=== PATIENT | male | born 2000 | race Hispanic/Latino ===

== ENCOUNTER 2020-01-27 05:49 | Emergency (ER) | payer OTHER ==
[~2020-01-27] VITALS: Ht 160 cm; Wt 67.0 kg
[2020-01-27] MEDS ORDERED: GI COCKTAIL 50ML BTL(HYOSCYAMINE/MAALOX/LIDOCAINE VISCOUS)(1:3:1) PO ONE (06:30)
--- NOTE | 2020-01-27 07:41 | REP ---
Clinical: Central chest pain . Comparison: None . Technique: PA and lateral. Findings: The mediastinum and cardiac silhouette are normal. The lung ramirez are clear and without acute consolidation, effusion, or pneumothorax. The skeletal structures are intact and normal. Impression: 1. No acute cardiopulmonary process. Electronically Signed by Christopher Hayes MD 01/27/2020 07:32 A
--- NOTE | 2020-01-27 07:42 | REP ---
Clinical: Upper chest and neck pain. Technique: AP and lateral soft tissue neck radiographs (three views). Findings: Airway is patent, midline, and normal in appearance. Surrounding soft tissues are unremarkable. Osseous structures are intact and normal. No foreign body or subcutaneous emphysema. Impression: Normal soft tissue neck radiographs. Electronically Signed by Christopher Hayes MD 01/27/2020 07:34 A
[2020-01-27] MEDS ORDERED: PEPC1TAB5 PO (07:45)
[2020-01-27 07:59] VITALS: BP 132/81
== END 2020-01-27 08:01 | disposition home or self-care (01) ==
LOC: M ED 05:49
DX: R13.12 Dysphagia, oropharyngeal phase (principal)

== ENCOUNTER 2021-08-02 17:26 | Emergency (ER) | payer OTHER ==
[~2021-08-02] VITALS: Ht 157.5 cm; Wt 70.2 kg
[~2021-08-02 17:26] MED LIST: PEPC1TAB5 PO
[2021-08-02 17:27] VITALS: BP 139/62
--- NOTE | 2021-08-02 18:19 | REP ---
INDICATION: trauma left thumb COMPARISON: None. TECHNIQUE: AP, lateral, bilateral oblique views left 1st digit. FINDINGS: There is a nondisplaced intra-articular corner fracture at the base of the distal phalanx. No further acute fracture or dislocation appreciated. No subcutaneous emphysema or foreign body. IMPRESSION: Nondisplaced intra-articular corner fracture at the base of the distal phalanx. <Electronically signed by Christopher Hayes > 08/02/21 [id number]
--- OUTSIDE RECORDS SUMMARY | 2021-08-02 20:32 | CCD ---
Author Author [facility] Organization [facility] Address Unknown Phone Unavailable Support Name Relationship Address Phone [facility] Next Of Kin [address] [place] [address] Unavailable LUANN DEAN Next Of Kin [id number] [place], [place] [id number] Re-disclosure Warning The records that you are about to access may contain information from federally-assisted alcohol or drug abuse programs. If such information is present, then the following federally mandated warning applies: This information has been disclosed to you from records protected by federal confidentiality rules (42 CFR part 2). The federal rules prohibit you from making any further disclosure of this information unless further disclosure is expressly permitted by the written consent of the person to whom it pertains or as otherwise permitted by 42 CFR part 2. A general authorization for the release of medical or other information is NOT sufficient for this purpose. The Federal rules restrict any use of the information to criminally investigate or prosecute any alcohol or drug abuse patient.The records that you are about to access may contain highly sensitive health information, the redisclosure of which is protected by Article 27-F of the [facility] Public Health law. If you continue you may have access to information: Regarding HIV / AIDS; Provided by facilities licensed or operated by the [facility] Office of Mental Health; or Provided by the [facility] Office for People With Developmental Disabilities. If such information is present, then the following [facility] mandated warning applies: This information has been disclosed to you from confidential records which are protected by state law. State law prohibits you from making any further disclosure of this information without the specific written consent of the person to whom it pertains, or as otherwise permitted by law. Any unauthorized further disclosure in violation of state law may result in a fine or retirement sentence or both. A general authorization for the release of medical or other information is NOT sufficient authorization for further disc losure. Medications No Information Insurance Providers Payer name Policy type / Coverage type Policy ID Covered green party ID Covered green party's relationship to peoples Policy Peoples Plan Information [facility] [employer] [id number] Problems, Conditions, and Diagnoses No Information Surgeries/Procedures No Information Results ID Date Data Source [id number] 06/06/2021 01:26:00 PM EDT [facility] Name Value Range Interpretation Code Description Data Gemini rce(s) Supporting Document(s) SARS coronavirus 2 RNA Not Detected [facility] This lab was ordered by [facility] and reported by [facility]. Procedure Social History No Information
== END 2021-08-02 21:51 | disposition left against medical advice (07) ==
LOC: M ED 17:26
DX: Z53.21 Procedure and treatment not carried out due to patient leaving prior to being seen by health care provider (principal)